=== PATIENT | male | born 1985 | race Caucasian/White ===

== ENCOUNTER 2020-09-02 08:39 | Inpatient (IN) | payer OTHER ==
[2020-09-02] MEDS ORDERED: NICOTINE POLACRILEX 2 MG GUM BUC PRN (09:36)
[2020-09-02] MEDS ORDERED: BISMUTH SUBSALICYLATE 524 MG/30 ML UD PO PRN (09:36)
[2020-09-02] MEDS ORDERED: MENTHOL/PHENOL 1 EACH UD MM PRN (09:36)
[2020-09-02] MEDS ORDERED: IBUPROFEN 400 MG TABLET (FP) PO PRN (09:36)
[2020-09-02] MEDS ORDERED: ACETAMINOPHEN 325 MG TABLET (FP) PO PRN (09:36)
[2020-09-02] MEDS ORDERED: ONDANSETRON *ODT* 4 MG TABLET SL PRN (09:36)
[2020-09-02] MEDS ORDERED: MAGNESIUM CITRATE 300 ML BOTTLE PO PRN (09:36)
[2020-09-02] MEDS ORDERED: MAG HYDROX/AL HYDROX/SIMETH 30 ML UNIT-DOSE CUP PO PRN (09:36)
[2020-09-02] MEDS ORDERED: chlordiazePOXIDE HCL 25 MG CAPSULE PO PRN (09:36)
[2020-09-02] MEDS ORDERED: BACITRACIN 15 GM TUBE TOPICAL OINTMENT TP SCH (10:00)
[2020-09-02 10:01] VITALS: BMI 26.9
[2020-09-02] MEDS: NICOTINE 21 MG/24 HOURS TOPICAL PATCH TD SCH (10:54)
[2020-09-02] MEDS: chlordiazePOXIDE HCL 25 MG CAPSULE PO SCH ×3 (10:54→22:06)
[2020-09-02] MEDS: hydrOXYzine PAMOATE 25 MG CAPSULE (FP) PO SCH ×4 (10:54→21:40)
[2020-09-02] MEDS: PRENATAL VITAMINS W/ FOLIC ACID TABLET (FP) PO SCH (10:59)
[2020-09-02 19:53] LABS: HEMATOCRIT 39.9 % (35.4-49); HEMOGLOBIN 13.3 GM/dL (11.7-16.9); MCH 31.2 pg (25.7-33.7); MCHC 33.3 g/dl (32.0-35.9); MEAN CELL VOLUME 93.9 fl (80-96); MEAN PLT VOLUME 8.3 fl (7.5-11.1); PLATELET COUNT 257 K/MM3 (134-434); RBC 4.25 M/mm3 (4.00-5.60); RDW 14.7 % (11.9-15.9); WHITE BLOOD COUNT 3.2 K/mm3 (4.0-10.0)
[2020-09-02 20:04] LABS: POTASSIUM 3.9 mmol/L (3.5-5.1)
[2020-09-02 20:11] LABS: CREATININE 0.9 mg/dL (0.55-1.3)
[2020-09-02 20:13] LABS: BILIRUBIN,TOTAL 0.3 mg/dL (0.2-1); TOT PROT 7.6 g/dl (6.4-8.2)
[2020-09-02 20:14] LABS: BLOOD UREA NITROGEN 14.7 mg/dL (7-18); CALCIUM 8.7 mg/dL (8.5-10.1)
[2020-09-02 20:55] LABS: HIV INTERPRETATION NEGATIVE (NEGATIVE)
[2020-09-02] MEDS: THIAMINE HCL 100 MG TABLET (FP) PO SCH (21:39)
[2020-09-02] MEDS: traZODone HCL 50 MG TABLET (FP) PO SCH (21:41)
[2020-09-02] MEDS: MELATONIN 5 MG TABLETS PO SCH (21:41)
[2020-09-02] MEDS: BACITRACIN 0.9 GM PACKET TP SCH (21:43)
[2020-09-03] MEDS: chlordiazePOXIDE HCL 25 MG CAPSULE PO SCH ×4 (05:50→22:48)
[2020-09-03] MEDS: hydrOXYzine PAMOATE 25 MG CAPSULE (FP) PO SCH ×5 (05:51→22:49)
[2020-09-03] MEDS: PRENATAL VITAMINS W/ FOLIC ACID TABLET (FP) PO SCH (10:14)
[2020-09-03] MEDS: METHOCARBAMOL 500 MG TABLET PO PRN ×2 (10:16→22:48)
[2020-09-03] MEDS: NICOTINE 21 MG/24 HOURS TOPICAL PATCH TD SCH (10:16)
[2020-09-03] MEDS: BACITRACIN 0.9 GM PACKET TP SCH ×2 (10:18→22:48)
[2020-09-03 11:15] LABS: PH,URINE 6.5 (5.0-8.0); URINE APPEARANCE CLEAR; URINE BILIRUBIN NEGATIVE (NEGATIVE); URINE COLOR YELLOW; URINE GLUCOSE (UA) NEGATIVE (NEGATIVE); URINE KETONE NEGATIVE (NEGATIVE); URINE LEUK ESTERASE NEGATIVE (NEGATIVE); URINE NITRITE NEGATIVE (NEGATIVE); URINE PROTEIN NEGATIVE (NEGATIVE); URINE UROBILINOGEN 0.2 mg/dL (0.2-1.0)
[2020-09-03] MEDS: traZODone HCL 50 MG TABLET (FP) PO SCH (22:48)
[2020-09-03] MEDS: MELATONIN 5 MG TABLETS PO SCH (22:48)
[2020-09-03] MEDS: THIAMINE HCL 100 MG TABLET (FP) PO SCH (22:49)
[2020-09-04] MEDS: chlordiazePOXIDE HCL 25 MG CAPSULE PO SCH ×4 (05:31→22:22)
[2020-09-04] MEDS: hydrOXYzine PAMOATE 25 MG CAPSULE (FP) PO SCH ×5 (05:31→22:22)
[2020-09-04 10:36] LABS: HEMOGLOBIN 13.6 GM/dL (11.7-16.9); MCH 31.3 pg (25.7-33.7); MCHC 33.1 g/dl (32.0-35.9); MEAN CELL VOLUME 94.4 fl (80-96); MEAN PLT VOLUME 8.5 fl (7.5-11.1); PLATELET COUNT 220 K/MM3 (134-434); RBC 4.35 M/mm3 (4.00-5.60); RDW 14.4 % (11.9-15.9); WHITE BLOOD COUNT 3.3 K/mm3 (4.0-10.0)
[2020-09-04] MEDS: PRENATAL VITAMINS W/ FOLIC ACID TABLET (FP) PO SCH (10:42)
[2020-09-04] MEDS: BACITRACIN 0.9 GM PACKET TP SCH ×2 (10:43→22:40)
[2020-09-04] MEDS: NICOTINE 21 MG/24 HOURS TOPICAL PATCH TD SCH (10:43)
[2020-09-04] MEDS ORDERED: FLU VACCINE (FLULAVAL) PF 60 MCG/0.5 ML SYRINGE 2020-2021 IM ONE (12:00)
[2020-09-04] MEDS ORDERED: PNEUMOC 13-VAL CONJ-DIP CRM/PF 0.5 ML DISP.SYRIN IM ONE (12:00)
[2020-09-04] MEDS ORDERED: chlordiazePOXIDE HCL 25 MG CAPSULE PO SCH (15:00)
[2020-09-04] MEDS: ACETAMINOPHEN 325 MG TABLET (FP) PO PRN (18:19)
[2020-09-04] MEDS: MELATONIN 5 MG TABLETS PO SCH (22:22)
[2020-09-04] MEDS: traZODone HCL 50 MG TABLET (FP) PO SCH (22:22)
[2020-09-04] MEDS: THIAMINE HCL 100 MG TABLET (FP) PO SCH (22:23)
[2020-09-04] MEDS: MAGNESIUM HYDROX 2400MG/30ML ORAL SUSPENSION 30 ML CUP PO PRN (22:46)
[2020-09-05] MEDS ORDERED: chlordiazePOXIDE HCL 10 MG CAPSULE PO PRN
[2020-09-05] MEDS: chlordiazePOXIDE HCL 10 MG CAPSULE PO SCH ×4 (06:10→22:34)
[2020-09-05] MEDS: hydrOXYzine PAMOATE 25 MG CAPSULE (FP) PO SCH ×5 (06:11→22:35)
[2020-09-05] MEDS: PRENATAL VITAMINS W/ FOLIC ACID TABLET (FP) PO SCH (10:18)
[2020-09-05] MEDS: BACITRACIN 0.9 GM PACKET TP SCH ×2 (10:19→22:35)
[2020-09-05] MEDS: NICOTINE 21 MG/24 HOURS TOPICAL PATCH TD SCH (10:19)
[2020-09-05] MEDS: THIAMINE HCL 100 MG TABLET (FP) PO SCH (22:34)
[2020-09-05] MEDS: MAGNESIUM HYDROX 2400MG/30ML ORAL SUSPENSION 30 ML CUP PO PRN (22:34)
[2020-09-05] MEDS: ACETAMINOPHEN 325 MG TABLET (FP) PO PRN (22:34)
[2020-09-05] MEDS: traZODone HCL 50 MG TABLET (FP) PO SCH (22:34)
[2020-09-05] MEDS: MELATONIN 5 MG TABLETS PO SCH (22:36)
[2020-09-06] MEDS ORDERED: chlordiazePOXIDE HCL 10 MG CAPSULE PO SCH (05:00)
[2020-09-06] MEDS: hydrOXYzine PAMOATE 25 MG CAPSULE (FP) PO SCH (06:14)
[2020-09-06 09:39] VITALS: BP 114/70; PULSE 81; TEMP 98.6
[2020-09-07] MEDS ORDERED: chlordiazePOXIDE HCL 10 MG CAPSULE PO ONE (05:00)
== END 2020-09-06 10:01 | disposition home or self-care (01) | DRG 775 ==
LOC: YASAS 08:39 → Y3N 09:58
PROVIDERS: ADMIT Allergy & Immunology; ATTEND Allergy & Immunology
PROC: HZ2ZZZZ Detoxification Services for Substance Abuse Treatment (ICD-10-PCS; principal; 2020-09-02)
DX: F10.230 Alcohol dependence with withdrawal, uncomplicated (principal); F10.220 Alcohol dependence with intoxication, uncomplicated; F12.10 Cannabis abuse, uncomplicated; F17.210 Nicotine dependence, cigarettes, uncomplicated; F19.24 Other psychoactive substance dependence with psychoactive substance-induced mood disorder; G47.00 Insomnia, unspecified; R73.09 Other abnormal glucose; Z86.69 Personal history of other diseases of the nervous system and sense organs
CPT/HCPCS: 36415; 80053; 81003; 82962; 85027; 86780; 87389; 93005; 93010; C9803; U0003

== ENCOUNTER 2025-08-01 03:25 | Inpatient (IN) | payer OTHER ==
[2025-08-01 03:32] VITALS: BMI 20.8
[2025-08-01] MEDS ORDERED: BENZOCAINE/MENTHOL (CHLORASEPTIC ) LOZENGE MM PRN (04:19)
[2025-08-01] MEDS ORDERED: guaiFENesin 600 MG TABLET.ER (FP) PO PRN (04:19)
[2025-08-01] MEDS ORDERED: LOPERAMIDE HCL 2 MG CAPSULE PO PRN (04:19)
[2025-08-01] MEDS ORDERED: POLYETHYLENE GLYCOL (HEALTHYLAX) 3350 17 GM PACKET PO PRN (04:19)
[2025-08-01] MEDS ORDERED: BENZONATATE 200 MG CAPSULE PO PRN (04:19)
[2025-08-01] MEDS ORDERED: IBUPROFEN 400 MG TABLET (FP) PO PRN (04:19)
[2025-08-01] MEDS ORDERED: BISMUTH SUBSALICYLATE 524 MG/30 ML PO PRN (04:19)
[2025-08-01] MEDS ORDERED: NALOXONE (NARCAN) HCL 4 MG/0.1 ML SPRAY NS PRN (04:19)
[2025-08-01] MEDS ORDERED: DICYCLOMINE HCL 10 MG CAPSULE PO PRN (04:19)
[2025-08-01] MEDS ORDERED: ONDANSETRON *ODT* 4 MG TABLET SL PRN (04:19)
[2025-08-01] MEDS ORDERED: MAG HYDROX/AL HYDROX/SIMETH 30 ML UNIT-DOSE CUP PO PRN (04:19)
[2025-08-01] MEDS ORDERED: MAGNESIUM HYDROX 2400MG/30ML ORAL SUSPENSION 30 ML CUP PO PRN (04:19)
[2025-08-01] MEDS ORDERED: ACETAMINOPHEN 325 MG TABLET (FP) PO PRN (04:19)
[2025-08-01] MEDS ORDERED: IBUPROFEN 600 MG TABLET (FP) PO PRN (04:19)
[2025-08-01] MEDS ORDERED: NICOTINE POLACRILEX 2 MG GUM BC PRN (04:23)
[2025-08-01] MEDS: PRENATAL VITAMINS W/ FOLIC ACID TABLET (FP) PO SCH (10:17)
[2025-08-01] MEDS: NICOTINE 21 MG/24 HOURS TOPICAL PATCH TD SCH (10:23)
[2025-08-01] MEDS: PNEUMOC 20-VAL CONJ-DIP CRM/PF 0.5 ML SYRINGE IM ONE (10:24)
[2025-08-01] MEDS: FLU VACC TS2025-26(6MOS UP)/PF 45 MCG/0.5 ML SYRINGE IM ONE (10:29)
[2025-08-01] MEDS: EMTRICITABINE/TENOFOV ALAFENAM (DESCOVY) TABLET PO SCH (13:49)
[2025-08-01] MEDS ORDERED: PATIENT'S OWN MEDICATION (NON-FORMULARY) (Buprenorphine/Naloxone 1 EACH Film) SL SCH (14:00)
[2025-08-01] MEDS ORDERED: BUPRENORPHINE/NALOXONE 8 MG/2 MG FILM PACKET SL SCH (14:00)
[2025-08-01] MEDS: BACITRACIN 0.9 GM PACKET TP SCH (14:55)
[2025-08-01] MEDS: MELATONIN 5 MG TABLETS PO SCH (22:04)
[2025-08-01] MEDS: THIAMINE 100 MG TABLET PO SCH (22:04)
[2025-08-01] MEDS: METHOCARBAMOL 500 MG TABLET PO PRN (22:05)
[2025-08-01] MEDS: hydrOXYzine PAMOATE 25 MG CAPSULE (FP) PO PRN (22:05)
[2025-08-02 09:22] LABS: MCHC 31.8 g/dl (32.3-36.5); MEAN CELL VOLUME 86.9 fl (79.0-92.2); MEAN PLT VOLUME 10.7 fl (9.4-12.4); RDW 13.3 % (12.0-15.6)
[2025-08-02] MEDS: BACITRACIN 0.9 GM PACKET TP SCH (10:03)
[2025-08-02] MEDS: FLUTICASONE/UMECLIDIN/VILANTER(200-62.5-25 TRELEGY ELLIPTA) INAHLER IH SCH (10:03)
[2025-08-02 10:21] LABS: GLUCOSE,RANDOM 93.0 mg/dL (74-106); TOT PROT 6.2 g/dl (6.4-8.2)
[2025-08-02 10:22] LABS: CO2 25.0 mmol/L (21-32)
[2025-08-02 10:24] LABS: ALK PHOS 65.0 U/L (40-150)
[2025-08-02 10:27] LABS: CREATININE 0.75 mg/dL (0.55-1.3); SGOT/AST 17.0 U/L (5-34); SGPT/ALT 28.0 U/L (0-55)
[2025-08-02] MEDS: BUPRENORPHINE/NALOXONE 8 MG/2 MG FILM PACKET SL SCH (10:57)
[2025-08-02 12:33] VITALS: BP 137/88; PULSE 88; RESP 16; TEMP 98
== END 2025-08-02 13:33 | disposition other institution (70) | DRG 773 ==
LOC: YASAS 03:25 → Y3N 05:48
PROVIDERS: ADMIT Allergy & Immunology; ATTEND Family Medicine
PROC: HZ2ZZZZ Detoxification Services for Substance Abuse Treatment (ICD-10-PCS; principal; 2025-08-01)
DX: F11.20 Opioid dependence, uncomplicated (principal); F14.20 Cocaine dependence, uncomplicated; F12.20 Cannabis dependence, uncomplicated; F17.210 Nicotine dependence, cigarettes, uncomplicated; F19.24 Other psychoactive substance dependence with psychoactive substance-induced mood disorder; F41.9 Anxiety disorder, unspecified; F32.A Depression, unspecified; Z21 Asymptomatic human immunodeficiency virus [HIV] infection status; G47.00 Insomnia, unspecified; Z79.899 Other long term (current) drug therapy
CPT/HCPCS: 36415; 80053; 80305; 80307; 85027; 86780; 87811; 90656; 90677; 93005; 93010